=== PATIENT | female | born 1960 | race Caucasian/White ===

== ENCOUNTER 2016-12-24 22:40 | Inpatient (IN) | payer MEDICARE, OTHER ==
--- NOTE | ~2016-12-24 | HP ---
Unit #: [id number] #: [id number] Patient: JOEY ATKINS [id number] [address] [place], [place] [address] [id number] I MR#: [id number] NAME: JOEY ATKINS ROOM: [facility] Age: 56 Sex: F Admission Date: 12/25/2016 : 1960 Attending Physician: Ernestine Robert M.D. Primary Care Physician: Juan F Perry M.D. HISTORY AND PHYSICAL CHIEF COMPLAINT Left face pimple/redness. HISTORY OF PRESENT ILLNESS Ms. Atkins is a 56-year-old female who presented to the ER for above. The patient noticed a pimple present up above her left upper lip approximately 7-10 days ago. She put rubbing alcohol on the wound and attempted to pop it but states the rubbing alcohol burned. Several days later she noticed redness now extending up her left cheek up under to her left eye. She states the area felt warm and was draining, but she denies any subjective fever. When seen in the emergency department last evening, the patient's vital signs were all "present" upon presentation. She underwent a CT scan of her face, which revealed underlying abscess, and she was subsequently admitted after receiving clindamycin in the emergency department. PAST MEDICAL HISTORY 1. Severe anxiety, maintained on chronic benzodiazepine per [facility]. 2. Hypertension. 3. Urge incontinence. 4. COPD. 5. Chronic pain syndrome, maintained on narcotics. 6. Reports of hyperlipidemia. 7. Osteoarthritis. 8. Tobaccoism. 9. Questionable history of drug-seeking behavior per discharge summary in 2005. 10. Prior admission for hyponatremia and benzodiazepine withdrawal. PAST SURGICAL HISTORY 1. Left knee surgery x8 following failed left total knee arthroplasty. 2. Sharp incisional debridement of left lip and cheek earlier today. ALLERGIES Keflex (causes her throat to close). HOME MEDICATIONS 1. Omeprazole 20 mg daily. 2. Norvasc 10 mg daily. 3. Neurontin 800 mg q.i.d. 4. Vicodin 5/300 mg 1 t.i.d. 5. Cymbalta 90 mg daily. 6. Xanax 2 mg t.i.d. Unit #: [id number] #: [id number] Patient: JOEY ATKINS 7. Cozaar 50 mg daily. 8. Ditropan 15 mg daily. 9. Hydrochlorothiazide 12.5 mg p.o. daily. FAMILY HISTORY Family history is negative per patient. SOCIAL HISTORY The patient smoked a pack of cigarettes per day since age 14 for a 42 pack-year history of smoking. She denies any alcohol use. She denies any illicit drug use. REVIEW OF SYSTEMS The patient denies any fever, chest pain, shortness of breath, nausea, vomiting, diarrhea, melena, hematochezia, dysuria. She is complaining of pain and is reportedly anxious. PHYSICAL EXAMINATION VITAL SIGNS: Temperature 97.4, blood pressure 117/70, pulse rate 73, respiratory rate 16, oxygen saturation 98% on room air. GENERAL: The patient is awake. She is alert. She is oriented x3. Initially appears fine upon my initial entrance but then begins to cry that she is in pain. HEENT: Pupils are equally round and reactive to light bilaterally. Anicteric sclera. No conjunctival pallor. Oropharynx with moist mucous membranes. Edentulous. No erythema or exudate. NECK: Supple. No lymphadenopathy. No thyromegaly. No JVD. HEART: Regular rate and rhythm without murmur, rub or gallop. LUNGS: Diminished bilaterally without wheezes, rhonchi or crackles. ABDOMEN: Soft, nontender, nondistended. Positive bowel sounds. EXTREMITIES: No cyanosis, clubbing or edema. Pedal pulses 2/4. SKIN: There is erythema and swelling of the left cheek up to the left eye, but the incision site is currently dressed and was not viewed. The patient does have several scab lesions over the forearms, right greater than left, bilaterally from apparently picking. NEUROLOGIC: Cranial nerves II-XII intact. Sensation, strength and deep tendon reflexes are grossly normal. PSYCHIATRIC: Again, anxious. No suicidal or homicidal ideation. MUSCULOSKELETAL: No significant joint abnormalities noted. DIAGNOSTIC STUDIES LABORATORY: Lab work done in the ER reveals a white blood cell count of 12.3, hemoglobin 12.3, platelet count of 380,000. BMP reveals a sodium of 136, potassium 3.5, chloride 100, bicarb 28, BUN 7, creatinine 0.5, glucose 92. Wound culture done during surgery is currently growing gram-positive cocci in clusters. IMAGING: CT of maxillofacial area with contrast done in the emergency department reveals multilocular fluid collection within the subcutaneous fat of the left maxillary bone extending to the midline upper lip. This measures 3.4 cm x 1 cm x 8 mm. No evidence of osteomyelitis. Edentulous teeth noted. ASSESSMENT 1. Left facial abscess with associated cellulitis concerning for staph infection. 2. Hypertension. 3. Urge incontinence. Unit #: [id number] #: [id number] Patient: JOEY ATKINS 4. Chronic pain syndrome, maintained on opiates, with prior reports of drug-seeking behavior in the past. 5. Chronic anxiety, maintained on benzodiazepines. 6. Gastroesophageal reflux disease. 7. COPD. 8. Tobaccoism. PLAN 1. Will admit the patient to med/surg. 2. Patient was given clindamycin in the ER in regard to her abscess, but following surgery she has been placed on vancomycin and Zosyn, which seems appropriate. Will continue these broad-spectrum antibiotics and taper down when cultures return. I think there is high probability this is some sort of Staphylococcus aureus. Will have LSA continue to follow the wound. 3. Will continue home medications for chronic conditions and monitor. 4. SCDs for DVT prophylaxis. Dictated by Ernestine Robert M.D. BROOKE/whit TD: 12/25/2016 14:23 JOB #: [id number] HISTORY AND PHYSICAL X Ernestine Robert MD X HISTORY AND PHYSICAL
--- NOTE | ~2016-12-24 | CO ---
Unit #: [id number] #: [id number] Patient: JOEY WILKINS [id number] [address] [address] [id number] I MR#: [id number] NAME: JOEY WILKINS ROOM: [facility] Age: 56 Sex: F Admission Date: 12/25/2016 : 1960 Attending Physician: Ernestine Robert M.D. Primary Care Physician: Juan F Perry M.D. Consultation Date: 12/25/2016 CONSULTATION REPORT REASON FOR CONSULTATION Abscess, upper lip and left cheek. Thank you very much for asking us to see Ms. Wilkins. HISTORY OF PRESENT ILLNESS She is a 56-year-old white female, who 1-week ago developed pimple on her lip. It has progressed to be swollen, erythematous, and have an area of necrosis of the left side of the upper lip. She came to the emergency room for further evaluation. On CT scan, she was found to have a multiloculated abscess of the left superficial maxillary area extending into the left upper lip. There was no deep infection other than the subcutaneous tissues. She has had no trouble swallowing. She has no trouble talking or breathing. She has no trouble with vision of her eyes. She presents at this time for further evaluation and treatment. ALLERGIES Cephalexin. MEDICATIONS At home include Cymbalta, alprazolam, Cozaar, Microzide, Prilosec, Mobic, losartan, hydrochlorothiazide, gabapentin, hydrocodone. PAST SURGICAL HISTORY Remarkable for left knee surgery; left ankle surgery; right hand surgery; oral surgery, the patient is current edentulous. PAST MEDICAL HISTORY Chronic back pain, depression, overactive bladder, bilateral knee pain. SOCIAL HISTORY Positive for tobacco use. No alcohol use. REVIEW OF SYSTEMS Negative except for above. IMMUNIZATION STATUS Unknown. FAMILY HISTORY Noncontributory. PHYSICAL EXAMINATION Unit #: [id number] #: [id number] Patient: JOEY WILKINS GENERAL: Well-developed, well-nourished white female, in no apparent distress, but with obvious erythema and swelling of her left cheek and necrotic area of the left side of her upper lip. VITAL SIGNS: Afebrile. Vital signs stable. NECK: Supple. No thyromegaly or adenopathy. BACK: No CVA or spinous tenderness. ABDOMEN: Flat, soft, nontender. HEENT: Examination of her face reveals a necrotic area of the left side of the upper lip and erythema and induration of the left maxillary area. On palpation inside the mouth, it does not appear to be any involvement internally. She did not complaining of any throat pain. DIAGNOSTIC STUDIES LABORATORY RESULTS: Reveal a normal CMP and a white count of 12.3 with hemoglobin of 12.3 and hematocrit 36.3. IMPRESSION A 56-year-old white female with a left cheek and left-sided upper lip abscess. We have recommended incision and drainage and debridement. All the risks and benefits were fully explained to the patient in detail including the risks of bleeding, infection, neurovascular injury, additional surgery, transfer , and other risks. She understands and requests to proceed. Dictated by... Alfie Leon/julieta TD: 12/25/2016 07:07 JOB #: [id number] CC: [facility] CONSULTATION REPORT X Shane Silva MD X CONSULTATION REPORT
--- NOTE | ~2016-12-24 | OR ---
Unit #: [id number] #: [id number] Patient: JOEY WILKINS [id number] [address] [address] [id number] I MR#: [id number] NAME: JOEY WILKINS [place] [facility] [place] [facility] [place] Date of Procedure: 12/25/2016 Admission Date: 12/25/2016 Surgeon: Shane Silva M.D. : 1960 Attending Physician: Ernestine Robert M.D. Primary Care Physician: Juan F Perry M.D. OPERATIVE REPORT PREOPERATIVE DIAGNOSIS Necrotic abscess, upper lip and left cheek. POSTOPERATIVE DIAGNOSIS Necrotic abscess, upper lip and left cheek. PROCEDURE PERFORMED Incision and drainage of necrotic abscess, left side of upper lip and left cheek with sharp excisional debridement of skin and subcutaneous tissue. ANESTHESIA General endotracheal anesthesia with 0.5% Marcaine plain local anesthesia. FINDINGS The patient had some necrotic skin and subcutaneous tissue sharply debrided. The abscess was opened and all loculations were broken up. SPECIMENS Sent to microbiology. COMPLICATIONS None apparent. CONDITION The patient tolerated the procedure well. INDICATIONS FOR PROCEDURE The patient is a 56-year-old white female, who developed a pimple on her lip approximately week ago. It progressed to necrotic wound and an area of induration and erythema of left maxillary area. On CT scan, the patient had a 3 to 4 cm abscess present. She presents at this time for incision and drainage. DESCRIPTION OF PROCEDURE After obtaining informed consent as well as receiving scheduled antibiotics, the patient was brought to the operating room and after adequate general endotracheal anesthesia was obtained, had her left face prepped and draped in a sterile fashion. A mosquito was placed through the necrotic wound on her lip and it tracked into a large abscess cavity over the left maxillary area. There was quite a bit of purulent material that was evacuated. An incision was made with a scalpel and the abscess Unit #: [id number] #: [id number] Patient: JOEY WILKINS was unroofed. All loculations were broken up. The Metzenbaum scissors and tenotomy scissors were used to sharply debride skin and subcutaneous tissue on either side that was necrotic. Cultures were sent. The wound was irrigated and hemostasis obtained with the Bovie, infiltrated with 0.5% Marcaine plain local anesthesia and was packed with a saline soaked fluff. A dry dressing was applied. Needle counts, sponge counts, and instrument counts were all correct as reported by the scrub nurse x2. The patient went from the operating room to the recovery room in stable condition. Dictated by... Alfie Leon/julieta TD: 12/25/2016 21:28 JOB #: [id number] CC: [facility] OPERATIVE REPORT X Shane Silva MD X PROCEDURE OPERATIVE NOTE
--- NOTE | ~2016-12-24 | CT99 ---
[facility] A Service of [facility] & [facility] RADIOLOGY TEXT RESULTS PATIENT: JOEY WILKINS LOCATION: A 217-01 : [birth year] UNIT #: [id number] AGE: [address]: Ernestine Robert MD SEX: F ORDER DR: [id number] [facility] [address] [facility]. [place], [place] [address] [id number] I MR#: [id number] Acc #: [id number] NAME: JOEY WILKINS : 1960 SEX: F STUDY DATE/TIME: 12/25/2016 0:48 UNIT: C3A PCU ROOM: 312 STUDY DESCRIPTION: CT Maxillofacial Area W Cont Attending Physician: Ernestine Robert M.D. Ordering Physician: Karel Mckeon Aprn Primary Care Physician: Juan F Perry M.D. MEDICAL IMAGING REPORT This report is preliminary unless electronic signature is present EXAM CT maxillofacial without IV contrast. COMPARISON CT head dated November 08, 2015. INDICATION 56-year-old female with an oral infection for 1 month. Left cheek and upper lip pain and redness. TECHNIQUE Axial CT imaging of the maxillofacial bones was performed after administration of 100 mL of Isovue-370. Coronal reformats were constructed. This CT exam was performed with one or more of the following radiation dose reduction techniques: automatic exposure control, adjustment of mA and/or kV according to patient size, and iterative reconstruction. FINDINGS Chronic appearing mild mucosal disease of the maxillary sinuses. Mastoid air cells, middle ears, and visualized paranasal sinuses are well-aerated. Patient is edentulous. No acute fractures or suspicious osseous lesions. No evidence of osteomyelitis. Two small hypoattenuating areas with a third hypoattenuating area on the left palatine tonsil, measuring up to 3 mm, 6 mm, and 4 mm. These are nonspecific. Tonsillar abscess is not entirely excluded. Visualized airway is widely patent. There are calcifications of the cavernous internal carotid arteries bilaterally. There are also calcifications at the level of the bilateral carotid bulbs. No significant arterial stenosis is seen within the neck. No bulky adenopathy. There is a multilocular fluid collection seen within the subcutaneous fat overlying the left maxillary bone extending inferiorly to the midline upper lip. This may communicate with the skin at the level of STS. [facility] A Service of [facility] RADIOLOGY TEXT RESULTS PATIENT: JOEY WILKINS LOCATION: [place] [address] : [birth year] UNIT #: [id number] AGE: [address]: Ernestine Robert MD SEX: F ORDER DR: the midline upper lip. In conglomerate, the fluid collection measures approximately 3.4 cm transverse by as much as 8 mm AP, and as much as a 1 cm craniocaudal. There is adjacent fat stranding. Overlying skin is mildly thickened. IMPRESSION 1. Rim-enhancing multilocular fluid collection within the subcutaneous fat overlying the left maxillary bone extending inferiorly into the midline upper lip. There may be communication with the skin at the upper lip and the finding is concerning for a multilocular abscess. This measures approximately 3.4 cm transverse x 1 cm craniocaudal x up to 8 mm AP. There is adjacent cellulitis and skin thickening. There is no evidence of osteomyelitis. The patient is edentulous. 2. 3 low-density lesions within the left palatine tonsil measuring 3 mm, 6 mm, and 4 mm. These are nonspecific and are likely insignificant in the absence of clinical symptoms but tonsillar abscess could give similar appearance. 3. Mild chronic maxillary paranasal sinus disease. 4. Calcifications of the cavernous internal carotid arteries and carotid bulbs. No evidence of significant associated stenosis. Dictated by... Kan Carney M.D. THIS IS AN ELECTRONICALLY VERIFIED REPORT Kan Carney M.D. at 12/28/2016 6:24 PM RERE/hipolito TD: 12/25/2016 09:24 JOB #: [id number] MEDICAL IMAGING REPORT COPY
--- NOTE | ~2016-12-24 | CT99 ---
[facility] A Service of [facility] & [facility] RADIOLOGY TEXT RESULTS PATIENT: JOEY WILKINS LOCATION: C2A 217- : [birth year] UNIT #: [id number] AGE: [address]: Ernestine Robert MD SEX: F ORDER DR: [id number] [facility] [address] [facility]. [place], [place] [address] [id number] I MR#: [id number] Acc #: [id number] NAME: JOEY WILKINS : 1960 SEX: F STUDY DATE/TIME: 12/27/2016 12:19 UNIT: C2A ROOM: 217 STUDY DESCRIPTION: CT Maxillofacial Area W Cont Attending Physician: Ernestine Robert M.D. Ordering Physician: Shan Tirado M.D. Primary Care Physician: Juan F Perry M.D. MEDICAL IMAGING REPORT This report is preliminary unless electronic signature is present EXAM Maxillofacial CT. DATE OF EXAM 12/27/2016 HISTORY Left-sided facial pain and swelling for the past 3 days. Facial cellulitis. Recent drainage of an abscess in the upper lip. TECHNIQUE Axial images were obtained with contrast. 100 mL of Isovue was used. NOTE: This CT exam was performed with one or more of the following radiation dose reduction techniques: automatic exposure control, adjustment of mA and/or kV according to patient size, and iterative reconstruction. FINDINGS The fluid collection in the upper lip has been drained since the previous examination. There is soft tissue swelling seen generally over the left side of the face consistent with cellulitis, but there is no evidence of any additional abscess formation. No new fluid collections are seen since the previous scan. No evidence of progressive adenopathy. Retroorbital structures are unremarkable. The superior ophthalmic veins are noted to be abnormally large bilaterally, but this is symmetric and there is no evidence of a chronic cavernous fistula on either side. This could reflect a chronically elevated venous pressures intracranially. IMPRESSION Interval drainage of the abscess in the upper lip. Left-sided facial swelling without evidence of any additional abscess or fluid collection. No new destructive bone lesions since the previous scan. Also noted is enlargement of the superior ophthalmic veins bilaterally, without a STS. [facility] A Service of [facility] & [facility] RADIOLOGY TEXT RESULTS PATIENT: JOEY WILKINS LOCATION: C2A 217-01 : [birth year] UNIT #: [id number] AGE: [address]: Ernestine Robert MD SEX: F ORDER DR: definite etiology. There is no evidence of chronic cavernous fistula on either side. The symmetry suggests perhaps chronically elevated intracranial venous pressures. Dictated by... Adrián Aguila M.D. THIS IS AN ELECTRONICALLY VERIFIED REPORT Adrián Aguila M.D. at 12/28/2016 8:39 AM TIEN/ollie TD: 12/27/2016 19:21 JOB #: [id number] MEDICAL IMAGING REPORT COPY
--- NOTE | ~2016-12-24 | DS ---
Unit #: [id number] #: [id number] Patient: JOEY WILKINS [id number] [address] [place], [place] [address] [id number] I MR#: [id number] NAME: JOEY WILKINS ROOM: 217 Age: 56 Sex: F Admission Date: 12/25/2016 : 1960 Discharge Date: 12/27/2016 Attending Physician: Ernestine Robert M.D. Primary Care Physician: Juan F Peryr M.D. DISCHARGE SUMMARY PRINCIPAL DIAGNOSES 1. Left facial abscess with associated cellulitis secondary to MRSA. 2. History of hypertension with mild hypotension. Now on decreased medication. 3. Hypokalemia. 4. Chronic pain syndrome, maintained on narcotics. 5. Severe anxiety. 6. Sedation secondary to medication. 7. Left elbow bursitis without evidence of infection. 8. Urge incontinence. 9. Chronic obstructive pulmonary disease. 10. Tobaccoism. 11. Osteoarthritis. 12. Gastroesophageal reflux disease. CONSULTANTS Dr. Silva, general surgery. PROCEDURES PERFORMED Incision and drainage of necrotic abscess of the left upper lip and left cheek with sharp excisional debridement of skin and subcutaneous tissue. This occurred without complication. DIAGNOSTIC DATA IMAGING: CT of the maxillofacial area with contrast on 12/25/2016 with a rim-enhancing multilocular fluid collection within the subcutaneous fat overlying the left maxillary bone and extending into the midline left upper lip. This measures 3.4 x 1 cm x 8 mm. Low density of the left palatine tonsil measuring 3 mm, 6 mm and 4 mm. Chronic paranasal sinus disease. CT scan of the maxillofacial area with contrast on 12/27/2016 without any evidence of abscess. This appeared to be drained. CLINICAL HISTORY/HOSPITAL COURSE Ms. Wilkins is a 56-year-old female who presented to the emergency department with swelling and redness of the lip. Please refer to history and physical for further detail. The patient was found to have left facial abscess and was subsequently admitted. LSA was consulted and the patient underwent incision and drainage and debridement of the region. Postoperatively she has done rather well. Her erythema has improved significantly. She denies any fever and leukocytosis has resolved. Cultures have ultimately frown MRSA sensitive Unit #: [id number] #: [id number] Patient: JOEY WILKINS to Bactrim therapy and I am going to change her to oral antibiotics. The patient today is insistent there is underlying abscess and thus CT scan was done and does not reveal any recurrent and/or new abscess. I have discussed this case with Dr. Tirado of general surgery and he agrees discharge is appropriate. I have tried to obtain home health, but unfortunately the patient is unclear on her address and thus she has been taught dressing changes to do herself. Please note, the patient has remained sedated significantly through her hospitalization and does demonstrate some drug-seeking behavior. I did decrease her Xanax. I suggested to her she decrease the dose as an outpatient, but I anticipate she will not do so. Can further adjust medications as an outpatient. The patient is also complaining of swelling of her left elbow, but this appears to be uncomplicated bursitis and there is no erythema or warmth to the lesion. At this point, drainage would not be in her best interest given her significant infection of her face and likely recurrence of her bursitis. DISCHARGE CONDITION Stable. DISPOSITION Discharge to home. DISCHARGE MEDICATIONS 1. Bactrim DS 1 b.i.d. for another 9 days. 2. Dakin's 1/8 strength solution applied to wound b.i.d. with 1 refill. 3. Neurontin 800 mg q.i.d. 4. Cymbalta 90 mg daily. 5. Xanax 2 mg p.o. t.i.d. 6. Norvasc 10 mg half tablet daily. 7. Ditropan 15 mg daily. 8. Cozaar 50 mg daily. 9. Vicodin 5/300 mg 1 tablet t.i.d. 10. Omeprazole 20 mg daily. DISCHARGE INSTRUCTIONS 1. The patient is instructed to pack the wound b.i.d. 2. She has been instructed on several occasions not to touch the wound. FOLLOWUP 1. The patient will follow up with Dr. Silva in seven days. 2. She can follow up with Dr. Perry in one week. Dictated by... Ernestine Robert M.D. Jaspal TD: 12/29/2016 08:48 JOB #: [id number] Unit #: [id number] #: [id number] Patient: JOEY WILKINS DISCHARGE SUMMARY X Ernestine Robert MD X DISCHARGE SUMMARY
[~2016-12-24 22:40] MED LIST: ABX; ALBUTEROL MININEB NEB; ALPRAZOLAM; ALPRAZOLAM PO; ALPRAZOLAM0.5 MG PO; ALPRAZOLAM1 MG PO; AMITRYPTYLINE PO; AMOXICILLIN500 M1 PO; AZOR 10-40 MG1 UDTAB PO; AZOR 10/20 MG T1 TAB PO; AZOR 10/40 MG T1 TAB; AZOR 10/40 MG T1 TAB PO; AZOR PO; BACLOFEN10 MG PO; BUMEX2 MG PO; CALCIUM 500 + D1 TAB PO; CHLORHEXIDINE; CLEOCIN HCL300 M1 PO; COZAAR25 MG PO; CYCLOBENZAPRINE5 MG PO; CYMBALTA PO; CYMBALTA20 MG PO; CYMBALTA30 MG; DIAZEPAM PO; DITROPAN; DITROPAN PO; DITROPAN XL PO; DITROPAN5 MG PO; FELDENE20 MG PO; FERROUS SULFATE PO; FIRST-OMEPR2 MG/1 ML; FLEXERIL PO; FLUOXETINE HCL20 M1 PO; FLUTICASONE PRO15 GM; FOLIC ACID PO; GABAPENTIN400 MG PO; HCTZ PO; HRT PO; HYDROCODON-ACE1 EAC5 PO; HYDROCODON-ACE1 EAC7 PO; IBUPROFEN IB200 M1 PO; IBUPROFEN100 M1; IBUPROFEN800 MG PO; KEFLEX500 M1 PO; KLONOPIN PO; LASIX; LASIX PO; LASIX20 MG PO; LEVOFLOXACIN750 MG PO; LIDODERM30 EA TOP; LOPRESSOR PO; LORTAB 10/500 T1 TAB PO; LORTAB 5-325 M1 EACH PO; MEDROL DOSE PAK PO; MEDROL PO; MICROZIDE12.5 M1 PO; MOBIC; MULTIVITAM PO; NABUMETONE PO; NAPROSYN500 MG PO; NAPROXEN PO; NAPROXEN375 MG PO; NEURONTIN PO; NEURONTIN800 MG; NEURONTIN800 MG DOB; NEURONTIN800 MG PO; NORFLEX100 M1 PO; NORVASC PO; NYSTATIN5 ML PO; OXYBUTYNIN10 MG/BOTT PO; PERCOCET 10/3251 TAB PO; PERCOCET 5-3251 TAB PO; PERCOCET 7.5-31 EACH PO; PERCOCET5/325 PO; PRILOSEC; PRILOSEC20 M1 PO; PROAIR HFA8.5 GM IH; PROVENTIL17 GM IH; PROZAC PO; RELAFEN500 MG PO; ROBAXIN PO; ROBAXIN500 MG PO; SEROQUEL PO; SEROQUEL XR150 MG; SEROQUEL XR300 M1 PO; SEROQUEL XR300 MG PO; SODIUM CHLORIDE1 GM PO; TORADOL10 MG PO; TRAMADOL HCL50 M1; TRAMADOL HCL50 M1 PO; VITAMIN D50000 UNIT PO; VOLTAREN100 GM TP; VOLTAREN75 MG PO; XANAX XR1 MG PO; XANAX0.5 M1 PO; XANAX1 MG; XANAX1 MG PO; XANAX2 MG PO; ZANAFLEX6 MG PO; ZOFRAN PO; ZOLOFT PO
[2016-12-24 23:41] LABS: BASOPHIL# 0.1 X10e3 (0-0.3); BASOPHIL% 0.6 % (0-2.5); EOSINOPHIL# 0.3 X10e3 (0-0.7); EOSINOPHIL% 2.3 % (0.0-7.0); HEMATOCRIT 36.3 % (35.0-45.0); HEMOGLOBIN 12.3 gm/dL (12.0-16.0); LYMPHOCYTE# 2.4 X10e3 (1.0-3.5); LYMPHOCYTE% 19.8 % (17.0-45.0); MEAN CELL VOLUME 92.1 FL (83-96); MEAN CORPUSCULAR HEMOGLOBIN 31.2 PG (28-34); MEAN CORPUSCULAR HGB CONC 33.9 g/dL (30-36); MEAN PLATELET VOLUME 8.7 FL (6.5-11.5); MONOCYTE# 0.9 X10e3 (0-1.0); MONOCYTE% 7.1 % (3.0-12.0); NEUTROPHIL# 8.6 X10e3 (1.5-7.1); NEUTROPHIL% 70.2 % (40-75); PLATELET COUNT 380 X10e3 (140-420); RED BLOOD COUNT 3.94 X10e (3.90-5.30); RED CELL DISTRIBUTION WIDTH 12.5 % (11.0-15.5); WHITE BLOOD COUNT 12.3 X10e3 (4.0-10.5)
[2016-12-24 23:42] LABS: DIFF IND NO
[2016-12-25 00:05] LABS: BLOOD UREA NITROGEN 7 mg/dL (9-23); CALCIUM SERUM 8.8 mg/dL (8.4-10.2); CARBON DIOXIDE 28 mmol/L (22-31); CHLORIDE 100 mmol/L (100-111); CREATININE SERUM 0.5 mg/dL (0.6-1.4); GLOM FILT RATE Estimated ABOVE60 mL/min (>60); GLUCOSE FASTING 92 mg/dL (70-110); POTASSIUM 3.5 mmol/L (3.5-5.1); SODIUM 136 mmol/L (135-145)
[2016-12-25] MEDS ORDERED: XANAX2 MG PO (00:51)
[2016-12-25] MEDS ORDERED: CYMBALTA PO (00:51)
[2016-12-25] MEDS ORDERED: COZAAR PO (00:52)
[2016-12-25] MEDS ORDERED: DITROPAN PO (00:52)
[2016-12-25] MEDS ORDERED: AMLODIPINE BESY10 MG PO (00:53)
[2016-12-25] MEDS ORDERED: HYDROCHLOROTH12.5 MG PO (00:53)
[2016-12-25] MEDS ORDERED: OMEPRAZOLE20 M2 PO (00:53)
[2016-12-25] MEDS ORDERED: NEURONTIN800 MG PO (00:54)
[2016-12-25] MEDS ORDERED: VICODIN 5-3001 EACH PO (00:54)
[2016-12-25 20:28] LABS: AMPHETAMINE NEG (NEG); BARBITURATES NEG (NEG); BENZODIAZEPINES POS (NEG); COCAINE NEG (NEG); MARIJUANA NEG (NEG); OPIATES POS (NEG); TRICYCLIC ANTIDEPRESSANTS NEG (NEG); U METHADONE NEG (NEG)
[2016-12-26 05:43] LABS: HEMATOCRIT 38.1 % (35.0-45.0); HEMOGLOBIN 12.8 gm/dL (12.0-16.0); MEAN CELL VOLUME 92.8 FL (83-96); MEAN CORPUSCULAR HEMOGLOBIN 31.1 PG (28-34); MEAN CORPUSCULAR HGB CONC 33.5 g/dL (30-36); MEAN PLATELET VOLUME 8.4 FL (6.5-11.5); RED BLOOD COUNT 4.11 X10e (3.90-5.30); RED CELL DISTRIBUTION WIDTH 12.6 % (11.0-15.5); WHITE BLOOD COUNT 9.1 X10e3 (4.0-10.5)
[2016-12-26 06:32] LABS: BLOOD UREA NITROGEN 6 mg/dL (9-23); CALCIUM SERUM 9.4 mg/dL (8.4-10.2); CARBON DIOXIDE 31 mmol/L (22-31); CHLORIDE 98 mmol/L (100-111); CREATININE SERUM 0.6 mg/dL (0.6-1.4); GLOM FILT RATE Estimated ABOVE60 mL/min (>60); GLUCOSE FASTING 114 mg/dL (70-110); POTASSIUM 3.4 mmol/L (3.5-5.1); SODIUM 141 mmol/L (135-145)
[2016-12-27 09:08] LABS: BLOOD UREA NITROGEN 9 mg/dL (9-23); BUN/CREATININE RATIO 12.85; CALCIUM SERUM 9.2 mg/dL (8.4-10.2); CARBON DIOXIDE 34 mmol/L (22-31); CHLORIDE 96 mmol/L (100-111); CREATININE SERUM 0.7 mg/dL (0.6-1.4); GLOM FILT RATE Estimated ABOVE60 mL/min (>60); GLUCOSE FASTING 95 mg/dL (70-110); MAGNESIUM 1.9 mg/dL (1.6-3.0); POTASSIUM 4.6 mmol/L (3.5-5.1); SODIUM 136 mmol/L (135-145)
[2016-12-27] MEDS ORDERED: DAKIN'S473 M1 MC (17:11)
[2016-12-27] MEDS ORDERED: BACTRIM DS TABL1 TA1 PO (17:12)
== END 2016-12-27 19:40 | disposition home or self-care (01) | DRG 133 ==
LOC: CED 22:40 → CEDOF 12-25 02:25 → C3A PCU 12-25 05:35 → C2A 12-25 15:24
PROVIDERS: Internal Medicine; Nurse Practitioner Family; Surgery
PROC: 0JB10ZZ Excision of Face Subcutaneous Tissue and Fascia, Open Approach (ICD-10-PCS; principal; 2016-12-25 13:00)
DX: K13.0 Diseases of lips (principal); L02.01 Cutaneous abscess of face; I10 Essential (primary) hypertension; F41.9 Anxiety disorder, unspecified; N39.41 Urge incontinence; G89.4 Chronic pain syndrome; M19.90 Unspecified osteoarthritis, unspecified site; Z88.1 Allergy status to other antibiotic agents; F17.210 Nicotine dependence, cigarettes, uncomplicated
CPT/HCPCS: 36415; 70487; 80048; 80202; 80307; 83735; 85025; 85027; 87040; 87070; 87075; 87077; 87186; 87205; 96365; 96375; 99285; J2250; J2270; J2543; J3010; J3370; Q9967

== ENCOUNTER 2017-01-07 21:10 | Emergency (ER) | payer MEDICARE, OTHER ==
--- NOTE | ~2017-01-07 | CR169 ---
[facility] A Service of [facility] RADIOLOGY TEXT RESULTS PATIENT: JOEY WILKINS LOCATION: CFTX : 62 UNIT #: [id number] AGE: [address]: Vy Ibrahim MD SEX: F ORDER DR: [id number] [facility] [address] [facility] [place], [place] [address] [id number] MR#: [id number] Acc #: [id number] NAME: JOEY WILKINS : 1960 SEX: F STUDY DATE/TIME: 01/07/2017 20:42 UNIT: [facility] ROOM: STUDY DESCRIPTION: CR Knee 2 Views Lt Attending Physician: Vy Ibrahim M.D. Referring Physician: Self Referral-Refer Use Only Ordering Physician: Vy Ibrahim M.D. Primary Care Physician: Juan F Perry M.D. MEDICAL IMAGING REPORT This report is preliminary unless electronic signature is present EXAM Left knee 2 views, 01/07/2017 HISTORY Left knee pain status post fall yesterday with bruising to left knee and swelling. FINDINGS 2 views of the left knee demonstrate total knee prosthesis which appears well seated. Surgical plate and screws is seen along the lateral aspect of the distal femur. No acute fracture is seen. There is no joint effusion. IMPRESSION Total knee prosthesis. No acute abnormality. Dictated by... Damien Kapoor M.D. THIS IS AN ELECTRONICALLY VERIFIED REPORT Damien Kapoor M.D. at 01/08/2017 10:50 AM ANSELMO/marcelo TD: 01/08/2017 04:02 JOB #: [id number] MEDICAL IMAGING REPORT COPY
--- NOTE | ~2017-01-07 | CR21 ---
[facility] A Service of [facility] & [facility] RADIOLOGY TEXT RESULTS PATIENT: JOEY WILKINS LOCATION: [facility]FT[facility] : 62 UNIT #: [id number] AGE: [address]: Vy Ibrahim MD SEX: F ORDER DR: [id number] [facility] [address] [facility]. [place], [place] [address] [id number] E MR#: [id number] Acc #: [id number] NAME: JOEY WILKINS : 1960 SEX: F STUDY DATE/TIME: 01/07/2017 20:46 UNIT: [facility] ROOM: STUDY DESCRIPTION: CR Ankle Min 3 Views Rt Attending Physician: Vy Ibrahim M.D. Referring Physician: Self Referral-Refer Use Only Ordering Physician: Vy Ibrahim M.D. Primary Care Physician: Juan F Perry M.D. MEDICAL IMAGING REPORT This report is preliminary unless electronic signature is present EXAM Right ankle series, 01/07/2017 INDICATION Right ankle pain after a fall yesterday. PROCEDURE 3 views of the right ankle. COMPARISON 10/29/2016 FINDINGS Ankle mortise intact. No acute fracture and no dislocation. IMPRESSION No acute findings. Dictated by... Gil German M.D. THIS IS AN ELECTRONICALLY VERIFIED REPORT Gil German M.D. at 01/09/2017 7:00 AM JAVIER/marcelo TD: 01/08/2017 04:13 JOB #: [id number] MEDICAL IMAGING REPORT COPY
--- NOTE | ~2017-01-07 | CR170 ---
[facility] A Service [facility] RADIOLOGY TEXT RESULTS PATIENT: JOEY WILKINS LOCATION: [facility] : 62 UNIT #: [id number] AGE: [address]: Vy Ibrahim MD SEX: F ORDER DR: [id number] [address] [address] [id number] E MR#: [id number] Acc #: [id number] NAME: JOEY WILKINS : 1960 SEX: F STUDY DATE/TIME: 01/07/2017 20:44 UNIT: CFTN ROOM: STUDY DESCRIPTION: CR Knee 2 Views Rt Attending Physician: Vy Ibrahim M.D. Referring Physician: Self Referral-Refer Use Only Ordering Physician: Vy Ibrahim M.D. Primary Care Physician: Juan F Perry M.D. MEDICAL IMAGING REPORT This report is preliminary unless electronic signature is present EXAM Right knee series, 01/07/2017 INDICATION Right knee pain after a fall yesterday. PROCEDURE 2 views of the right knee. COMPARISON None. FINDINGS No acute fracture. No dislocation. There is significant tricompartmental arthrosis. Moderate sized joint effusion. IMPRESSION Tricompartmental arthrosis with a moderate sized joint effusion. No evidence for fracture or dislocation. Dictated by... Gil German M.D. THIS IS AN ELECTRONICALLY VERIFIED REPORT Gil German M.D. at 01/09/2017 7:00 AM EED/marcelo TD: 01/08/2017 04:00 JOB #: [id number] [facility] A Service [facility] RADIOLOGY TEXT RESULTS PATIENT: JOEY WILKINS LOCATION: [place] : 62 UNIT #: [id number] AGE: [address]: Vy Ibrahim MD SEX: F ORDER DR: MEDICAL IMAGING REPORT COPY
[~2017-01-07 21:10] MED LIST changes: +AMLODIPINE BESY10 MG PO; +BACTRIM DS TABL1 TA1 PO; +COZAAR PO; +DAKIN'S473 M1 MC; +HYDROCHLOROTH12.5 MG PO; +OMEPRAZOLE20 M2 PO; +VICODIN 5-3001 EACH PO
== END 2017-01-07 21:45 | disposition home or self-care (01) ==
LOC: CFTX 21:10
DX: S93.401A Sprain of unspecified ligament of right ankle, initial encounter (principal); S80.02XA Contusion of left knee, initial encounter; S80.01XA Contusion of right knee, initial encounter; F17.200 Nicotine dependence, unspecified, uncomplicated; Z88.1 Allergy status to other antibiotic agents; Z79.899 Other long term (current) drug therapy; W18.30XA Fall on same level, unspecified, initial encounter; Y92.009 Unspecified place in unspecified non-institutional (private) residence as the place of occurrence of the external cause
CPT/HCPCS: 29530; 29540; 73560; 73610; 99284

== ENCOUNTER 2017-01-12 22:32 | Emergency (ER) | payer MEDICARE, OTHER | END 2017-01-12 23:55 | disposition home or self-care (01) | LOC: CED 22:32 | DX: R51 Headache (principal); F41.1 Generalized anxiety disorder; J44.9 Chronic obstructive pulmonary disease, unspecified; I10 Essential (primary) hypertension; F17.210 Nicotine dependence, cigarettes, uncomplicated; Z88.1 Allergy status to other antibiotic agents | CPT/HCPCS: 96372; 99283; J1885 ==

== ENCOUNTER 2017-02-05 15:38 | Emergency (ER) | payer MEDICARE, OTHER | END 2017-02-05 15:59 | disposition home or self-care (01) | LOC: CFTX 15:38 | DX: S89.92XA Unspecified injury of left lower leg, initial encounter (principal); W19.XXXA Unspecified fall, initial encounter; I10 Essential (primary) hypertension; I25.2 Old myocardial infarction; F32.9 Major depressive disorder, single episode, unspecified; F41.9 Anxiety disorder, unspecified; Y92.009 Unspecified place in unspecified non-institutional (private) residence as the place of occurrence of the external cause | CPT/HCPCS: 99283 ==

== ENCOUNTER 2017-06-04 19:45 | Inpatient (IN) | payer MEDICARE, OTHER ==
[~2017-06-04] VITALS: Ht 167.6 cm; Wt 73.4 kg
--- NOTE | ~2017-06-04 | EKG ---
PATIENT: JOEY WILKINS UNIT #: [id number] Ventricular Rate: 79 BPM Atrial Rate: 79 BPM P-R Interval: 170 ms QRS Duration: 100 ms Q-T Interval: 388 ms QTC Calculation(Bezet): 444 ms P De [place]: 43 degrees Calculated R [place]: -61 degrees Calculated T De [place]: 22 degrees Diagnosis Line: Normal sinus rhythm Diagnosis Line: Left axis deviation Diagnosis Line: Incomplete right bundle branch block Diagnosis Line: Inferior infarct (cited on or before 01-FEB-2014) Diagnosis Line: Anteroseptal infarct , age undetermined Diagnosis Line: Abnormal ECG Diagnosis Line: When compared with ECG of 08-NOV-2015 13:36, Diagnosis Line: Incomplete right bundle branch block is now Diagnosis Line: Present Diagnosis Line: Anteroseptal infarct is now Present Diagnosis Line: Confirmed by YENNY MESA MD ([id number]) on 06/05/2017 Diagnosis Line: 11:50:02 PM INTERPRETING MD: MOSHE EMERY
--- NOTE | ~2017-06-04 | HP ---
Unit #: [id number] #: [id number] Patient: JOEY WILKINS [id number] [address] [place], [place] [address] [id number] I MR#: [id number] NAME: JOEY WILKINS ROOM: 301 Age: 57 Sex: F Admission Date: 06/04/2017 : 1960 Attending Physician: Angie Pal M.D. Primary Care Physician: Juan F Perry M.D. HISTORY AND PHYSICAL ADDENDUM The patient is a little more awake this morning and denies suicide attempt. Again, I was told that she took a polypharmacy overdose of Xanax, Lortab and Neurontin. I thought this history was given to us by her significant other. However, it is the nurses who noted discrepancy in her pill bottles. I do believe the patient did take a polypharmacy overdose but I am unsure if all of those three medicines were involved. Obviously, when more awake and alert today, will be able to discuss with the patient further. I will continue a 72 hour hold at this point in time and ask [facility] to see in consultation. Dictated by Angie Pal M.D. AML/df TD: 06/05/2017 06:05 JOB #: [id number] HISTORY AND PHYSICAL Page 1 of 1 X Angie Pal MD X HISTORY AND PHYSICAL
--- NOTE | ~2017-06-04 | CO ---
Unit #: [id number] #: [id number] Patient: SHARA WILKINS [id number] [address] [place], [place] [address] [id number] I MR#: [id number] NAME: SHARA WILKINS ROOM: 301 Age: 57 Sex: F Admission Date: 06/04/2017 : 1960 Attending Physician: Robb Gilman M.D. Primary Care Physician: Juan F Perry M.D. Consultation Date: 06/05/2017 CONSULTATION REPORT REASON FOR CONSULTATION Polysubstance overdose, currently on 72-hour hold. HISTORY OF PRESENT ILLNESS Ms. Shara Wilkins is a 57-year-old white female, seen in room 301, bed 1, on 06/05/2017 at [facility]. The patient was admitted after polysubstance overdose. The patient dressed casually, seemed somewhat anxious, nervous, reported that she wants to go home. The patient is on 72-hour hold. Has a sitter. The patient reported that she was drinking a lot and took some pills. The patient took an unknown amount of Lortab, Xanax, Neurontin. Time of ingestion was unknown. The patient on admission was lethargic and arousable. The patient's urine drug tox screen was positive for benzos, opiates, acetaminophen, alcohol. The patient reports that she receives treatment from Dr. Guanako Frias and currently taking Xanax and pain medication. The patient seemed somewhat anxious, nervous, guarded, labile. The patient reports that she is not having any suicidal ideation now and wants to go home. The patient denied any hallucination at this time. Collateral information unavailable at this time. PAST PSYCHIATRIC HISTORY Remarkable for history of depression, anxiety, and outpatient followup with Dr. Guanako Frias. MEDICAL HISTORY AND MEDICATION HISTORY Remarkable for history of essential hypertension; history of incontinence; COPD; chronic pain, on [place]; MRSA; facial abscess requiring I and D in 11/2016; hyperlipidemia; DJD; left knee surgery x8. ALLERGIES Keflex. HOME MEDICATIONS The patient is on [place], Xanax 2 mg three times a day, trazodone, Prilosec, ibuprofen, estradiol, Cymbalta, Seroquel last fill 04/28/2017, and Diaidaopan. FAMILY HISTORY AND SOCIAL HISTORY The patient reports that she lives with boyfriend. Has a poor support. History of alcohol use. The patient denied any use of any illicit drugs, but reported some relationship problem. REVIEW OF SYSTEMS Complete review of systems is unremarkable except as mentioned above. The Unit #: [id number] #: [id number] Patient: SHARA WILKINS patient's vital signs; temperature 99.3, pulse 85, respirations 18, blood pressure 107/56, oxygen saturation 96%. MENTAL STATUS EXAMINATION General appearance; the patient dressed in hospital attire, seemed somewhat anxious, nervous. Mood was labile. Attention span and concentration were poor. Speech, rapid in rate and rambling. Oriented in place and person. Mood and affect, labile. Thought process, circumstantial. Thought content, the patient denied any thoughts of harming self or others, but was admitted after taking overdose polypharmacy. Recent and remote memory, fair to slightly impaired. Language, fair. Fund of knowledge, fair. Insight and judgment, fair to slightly impaired. DIAGNOSES Major depressive disorder, recurrent, severe, F33.2; anxiety disorder, not otherwise specified, F40.01; alcohol use disorder, severe, F10.20; opiate use disorder, severe, F11.20. Secondary diagnosis: Deferred. Medical diagnosis: Please refer to H and P. Stressors: Psychosocial stressors. ASSESSMENT AND PLAN 1. Supportive psychotherapy and psychoeducation provided to the patient. 2. Educated about benefits and side effects of medication and course and prognosis of illness. 3. Advised to continue with current treatment, sitter, 72-hour hold and once the patient is medically stable, transfer the patient to [facility] for inpatient psychiatric treatment. Please feel free to call if any questions, telephone #[phone]. Dictated by... Alfie Pierce/julieta TD: 06/06/2017 18:49 JOB #: [id number] CONSULTATION REPORT Page 1 of 1 X Kumar Gomez MD X CONSULTATION REPORT
--- NOTE | ~2017-06-04 | CR72 ---
[facility] A Service of [facility] & [facility] RADIOLOGY TEXT RESULTS PATIENT: JOEY WILKINS LOCATION: [facility] 301-01 : [birth year] UNIT #: [id number] AGE: [address]: Robb Gilman MD SEX: F ORDER DR: [id number] [facility] [address] [facility]. [place], [place] [address] [id number] I MR#: [id number] Acc #: [id number] NAME: JOEY WILKINS : 1960 SEX: F STUDY DATE/TIME: 06/04/2017 21:06 UNIT: [address] ROOM: [facility] STUDY DESCRIPTION: CR Chest Single View Portable Attending Physician: Robb Gilman M.D. Ordering Physician: Didier Ronodn D.O. Primary Care Physician: Juan F Perry M.D. MEDICAL IMAGING REPORT This report is preliminary unless electronic signature is present EXAM Frontal chest 06/04/2017 INDICATION Altered mental status, short of air. Symptoms began today. TECHNIQUE Frontal chest compared with 08/10/2015. FINDINGS Cardiac silhouette is within normal limits. Lung volumes are low and there is bronchovascular crowding favored over vascular congestion. There is new atelectasis or less likely infiltrate in the right lung base and generalized atelectasis in the mid and lower lung zones bilaterally. No pneumothorax or effusion. IMPRESSION 1. Low lung volumes and new atelectasis or less likely faint infiltrate in the right lung base. No pneumothorax or effusion. 2. Bronchovascular crowding bilaterally. Dictated by... Derik Song M.D. THIS IS AN ELECTRONICALLY VERIFIED REPORT Derik Song M.D. at 06/05/2017 2:22 PM ROMAN/kiera TD: 06/05/2017 11:08 JOB #: [id number] MEDICAL IMAGING REPORT Page 1 of 1 COPY
--- NOTE | ~2017-06-04 | HP ---
Unit #: [id number] #: [id number] Patient: JOEY WILKINS [id number] [address] [place], [place] [address] [id number] I MR#: [id number] NAME: JOEY WILKINS ROOM: 94602 Age: 57 Sex: F Admission Date: 06/04/2017 : 1960 Attending Physician: Angie Pal M.D. Primary Care Physician: Juan F Perry M.D. HISTORY AND PHYSICAL CHIEF COMPLAINT Polypharmacy overdose. HISTORY This 57-year-old female with anxiety and depression, COPD, hypertension, chronic pain, is admitted following an overdose. Family and friends are no longer present. The patient herself is obtunded. I'm told she was brought in to the ER with increasing lethargy after an overdose. The son told the ER physician that the patient took an unknown amount of Lortab, Xanax, and Neurontin. Time of ingestion is unknown. She was brought to this emergency department lethargic, around 8:00 p.m. but arousable. Has become increasingly obtunded. Workup is very unremarkable except for an early UTI. Urine tox screen is positive for benzos and opiates, acetaminophen salicylate and alcohol levels are all negligible. In the ER the patient was bolused with IV fluids, given Levaquin and Narcan. Continues to be extremely obtunded. PAST MEDICAL HISTORY 1. Anxiety and depression. 2. Essential hypertension. 3. Urge incontinence. 4. COPD. 5. Chronic pain on [place]. 6. MRSA facial abscess requiring I and D in November. 7. Hyperlipidemia. 8. DJD. 9. Left knee surgery x8, following failed left total knee arthroplasty. ALLERGIES Keflex (causes her throat to close). HOME MEDICATIONS [place] 5/325 b.i.d.; Xanax 2 mg t.i.d.; possible trazodone, Prilosec 20 mg daily; ibuprofen 800 mg t.i.d.; estradiol 0.5 mg daily; Cymbalta 30 mg daily; Seroquel 100 mg q. p.m.; also this was last filled 04/28/2017; losartan 100 mg daily; Norvasc 10 mg daily; Ditropan ER 15 mg daily. FAMILY HISTORY Unobtainable. SOCIAL HISTORY The patient had a history of tobacco use, I believe one pack per day. I am unsure whether she uses alcohol or illicit drugs. Unit #: [id number] #: [id number] Patient: JOEY WILKINS REVIEW OF SYSTEMS Impossible to obtain as patient is obtunded. PHYSICAL EXAMINATION GENERAL: Obtunded 57-year-old female currently in no acute distress. VITAL SIGNS: Temperature 97.4, pulse 98, respirations 10, blood pressure 114/64, O2 saturation 93% on room air. HEENT: Eyes - PERRLA, somewhat constricted, pharynx is dry mucosal membranes. NECK: Supple without adenopathy or thyromegaly. CHEST: Clear. CARDIAC: Normal S1 and S2 without definite murmur. ABDOMEN: Bowel sounds are present. No hepatosplenomegaly, tenderness or masses. EXTREMITIES: Without clubbing, cyanosis or edema. Pedal pulses are present. NEUROLOGIC: Patient is obtunded. With excessive noxious stimuli she arouses minimally. I am having difficulty obtaining a gag on this patient. DIAGNOSTIC STUDIES LABORATORY STUDIES: Hematocrit is 37.7, normal white count, platelet count and coags. SMA 12 is normal. Ammonia normal. Negative acetaminophen salicylate and alcohol level. Urine tox screen positive for benzos and opiates. Urinalysis positive leukocyte esterase, nitrates with 5-10 white cells, 4+ bacteria. IMAGING STUDIES: Chest x-ray - atelectasis in the right lower base. CARDIOLOGY STUDIES: EKG - normal sinus rhythm rate 80, left axis deviation. Q wave noted in V1 and V2 with poor R wave progression as well. Of note, there do appear to be old Q waves inferiorly as well. ASSESSMENT 1. Polypharmacy overdose, patient is obtunded. 2. UTI. 3. Anxiety and depression. 4. COPD. 5. Chronic pain on [place]. 6. GERD. 7. Essential hypertension. PLANS 1. Obtain ABG. Patient may need intubation for airway protection. 2. Continue Levaquin for now for UTI. 3. 72 hour hold. 4. IV fluids and supportive treatment. 5. DVT and gastritis prophylaxis. 6. I will recheck labs in the morning and check a set of a cardiac enzymes. 7. Critical care time spent in evaluating this patient was 30 minutes. Dictated by Angie Pal M.D. AML/ts Unit #: [id number] #: [id number] Patient: JOEY WILKINS TD: 06/05/2017 05:02 JOB #: [id number] HISTORY AND PHYSICAL Page 1 of 1 X Angie Pal MD X HISTORY AND PHYSICAL
--- NOTE | ~2017-06-04 | CT71 ---
[facility] A Service of [facility] RADIOLOGY TEXT RESULTS PATIENT: JOEY WILKINS LOCATION: [facility] : 62 UNIT #: [id number] AGE: [address]: Robb Gilman MD SEX: F ORDER DR: [id number] [place] [id number] [facility]. [place], [place] [address] [id number] I MR#: [id number] #: [id number] NAME: JOEY WILKINS : 1960 SEX: F STUDY DATE/TIME: 06/04/2017 21:22 UNIT: [address] ROOM: [facility] STUDY DESCRIPTION: CT Head Wo Contrast Attending Physician: Robb Gilman M.D. Ordering Physician: Didier Rondon D.O. Primary Care Physician: Juan F Perry M.D. MEDICAL IMAGING REPORT This report is preliminary unless electronic signature is present EXAM CT head, noncontrast, 06/04/2017. HISTORY 57-year-old female in the ED with reported drug overdose today. Lethargy, mental status changes, slurred speech. TECHNIQUE CT examination of the head was performed without IV contrast. This CT exam was performed with one or more of the following radiation dose reduction techniques: automatic exposure control, adjustment of mA and/or kV according to patient size, and iterative reconstruction. COMPARISON CT head, 11/08/2015. FINDINGS The no acute intracranial abnormality is demonstrated. Mild generalized cerebral cortical atrophy is noted, unchanged. No evidence of intracranial hemorrhage, mass, mass effect, cerebral edema, hydrocephalus, or additional abnormality. Note is made of mucosal thickening within the visualized frontal and ethmoid sinuses. IMPRESSION 1. No acute intracranial abnormality. 2. Stable mild diffuse chronic changes as noted. 3. No change since 11/08/2015. Dictated by... Peter Valle M.D. [facility] A Service of [facility] RADIOLOGY TEXT RESULTS PATIENT: JOEY WILKINS LOCATION: [facility] : 62 UNIT #: [id number] AGE: [address]: Robb Gilman MD SEX: F ORDER DR: THIS IS AN ELECTRONICALLY VERIFIED REPORT Peter Valle M.D. at 06/05/2017 10:00 PM LORENZO/hipolito TD: 06/05/2017 11:22 JOB #: [id number] MEDICAL IMAGING REPORT Page 1 of 1 COPY
[2017-06-04 20:32] LABS: URINE SOURCE CLEAN CATCH
[2017-06-04 20:38] LABS: URINE APPEARANCE CLEAR; URINE BILIRUBIN NEG (NEG); URINE BLOOD NEG (NEG); URINE COLOR YELLOW; URINE GLUCOSE NEG (NEG); URINE KETONE TRACE (NEG); URINE LEUKOCYTE ESTERASE 2+ (NEG); URINE NITRATE POS (NEG); URINE PH 6.5 (5-8); URINE PROTEIN NEG (NEG); URINE SPECIFIC GRAVITY 1.008 (1.003-1.035); URINE UROBILINOGEN 0.2 MG/DL (NEG)
[2017-06-04 20:39] LABS: BASOPHIL% 0.6 % (0-2.5); EOSINOPHIL# 0.1 X10e3 (0-0.7); EOSINOPHIL% 1.1 % (0.0-7.0); HEMATOCRIT 37.7 % (35.0-45.0); HEMOGLOBIN 12.8 gm/dL (12.0-16.0); LYMPHOCYTE# 1.1 X10e3 (1.0-3.5); LYMPHOCYTE% 18.6 % (17.0-45.0); MEAN CORPUSCULAR HEMOGLOBIN 32.2 PG (28-34); MEAN CORPUSCULAR HGB CONC 33.9 g/dL (30-36); MEAN PLATELET VOLUME 8.6 FL (6.5-11.5); MONOCYTE# 0.3 X10e3 (0-1.0); MONOCYTE% 5.1 % (3.0-12.0); NEUTROPHIL# 4.5 X10e3 (1.5-7.1); NEUTROPHIL% 74.6 % (40-75); PLATELET COUNT 264 X10e3 (140-420); RED BLOOD COUNT 3.97 X10e (3.90-5.30)
[2017-06-04 20:41] LABS: CULTURE INDICATED? YES; URBCS1 AUWI 0-2 /[HPF] (0-2); URINE BACTERIA AUWI 4+ (NEGATIVE); URINE SQUAMOUS EPITHELIAL CELL OCC /[HPF]
[2017-06-04 20:43] LABS: DIFF IND NO
[2017-06-04 20:47] LABS: POC - TROPONIN <0.05 ng/mL (<=0.05)
[2017-06-04 20:51] LABS: PARTIAL THROMBOPLASTIN TIME 28.1 SECONDS (23.5-31.3); PROTHROMBIN TIME (PATIENT) 10.6 SECONDS (10.0-11.7)
[2017-06-04 21:00] LABS: ALBUMIN SERUM 3.7 g/dL (3.5-5.0); ALKALINE PHOSPHATASE 62 U/L (32-92); ALT (SGPT) 33 U/L (10-40); AST (SGOT) 38 U/L (10-42); BILIRUBIN, DIRECT 0.1 mg/dL (0.0-0.2); BILIRUBIN,INDIRECT 0.7 mg/dL (0.0-0.9); BILIRUBIN,TOTAL 0.8 mg/dL (0.2-2.0); BLOOD UREA NITROGEN 12 mg/dL (9-23); BUN/CREATININE RATIO 17.14; CALCIUM SERUM 8.9 mg/dL (8.4-10.2); CARBON DIOXIDE 27 mmol/L (22-31); CHLORIDE 106 mmol/L (100-111); CREATININE SERUM 0.7 mg/dL (0.6-1.4); GLOM FILT RATE Estimated 96.9 mL/min (>60); GLUCOSE FASTING 103 mg/dL (70-110); POTASSIUM 3.6 mmol/L (3.5-5.1); PROTEIN TOTAL SERUM 6.8 g/dL (6.0-8.3); SALICYLATE <4.0 mg/dL; SODIUM 141 mmol/L (135-145)
[2017-06-04 21:01] LABS: ACETAMINOPHEN <10 ug/mL; ALCOHOL BLOOD <5 mg/dL (0)
[2017-06-04 21:13] LABS: AMPHETAMINE NEG (NEG); BARBITURATES NEG (NEG); BENZODIAZEPINES POS (NEG); COCAINE NEG (NEG); MARIJUANA NEG (NEG); OPIATES POS (NEG); TRICYCLIC ANTIDEPRESSANTS NEG (NEG); U METHADONE NEG (NEG)
[2017-06-05 00:36] LABS: ARTERIAL BLD GAS O2 SATURATION 97.1 % (90.0-100.0); ARTERIAL BLOOD GAS CARBOXY HB 1.1 %sat (0.0-9.0); ARTERIAL BLOOD GAS HCO3 28.5 mmol/L; ARTERIAL BLOOD GAS MET HB 0.8 %sat (0.0-2.0); ARTERIAL BLOOD GAS pH 7.409 (7.350-7.450)
[2017-06-05 00:37] LABS: ARTERIAL BLOOD GAS ALLEN TEST NORMAL; ARTERIAL BLOOD GAS ART SITE LEFT RADIAL; ARTERIAL BLOOD GAS DELIVERY NASAL CANNULA; ARTERIAL DRAW? YES
[2017-06-05] MEDS ORDERED: CYMBALTA30 M1 PO (00:49)
[2017-06-05] MEDS ORDERED: IBUPROFEN800 MG PO (00:49)
[2017-06-05] MEDS ORDERED: DITROPAN XL15 MG PO (00:50)
[2017-06-05] MEDS ORDERED: ESTRADIOL0.5 MG PO (00:50)
[2017-06-05] MEDS ORDERED: COZAAR100 MG PO (00:50)
[2017-06-05] MEDS ORDERED: TRAZODONE HCL100 MG PO (00:51)
[2017-06-05] MEDS ORDERED: XANAX2 MG PO (00:52)
[2017-06-05] MEDS ORDERED: AMLODIPINE BESY10 MG PO (00:52)
[2017-06-05] MEDS ORDERED: OMEPRAZOLE20 M1 PO (00:53)
[2017-06-05] MEDS ORDERED: QUETIAPINE FUM100 MG PO (00:54)
[2017-06-05 07:28] LABS: BASOPHIL# 0.1 X10e3 (0-0.3); BASOPHIL% 0.7 % (0-2.5); EOSINOPHIL# 0.2 X10e3 (0-0.7); EOSINOPHIL% 2.1 % (0.0-7.0); HEMATOCRIT 37.4 % (35.0-45.0); HEMOGLOBIN 12.3 gm/dL (12.0-16.0); LYMPHOCYTE# 1.7 X10e3 (1.0-3.5); LYMPHOCYTE% 22.4 % (17.0-45.0); MEAN CELL VOLUME 95.8 FL (83-96); MEAN CORPUSCULAR HEMOGLOBIN 31.6 PG (28-34); MEAN CORPUSCULAR HGB CONC 32.9 g/dL (30-36); MEAN PLATELET VOLUME 8.4 FL (6.5-11.5); MONOCYTE# 0.5 X10e3 (0-1.0); MONOCYTE% 6.3 % (3.0-12.0); NEUTROPHIL# 5.1 X10e3 (1.5-7.1); NEUTROPHIL% 68.5 % (40-75); PLATELET COUNT 252 X10e3 (140-420); RED BLOOD COUNT 3.91 X10e (3.90-5.30); RED CELL DISTRIBUTION WIDTH 14.5 % (11.0-15.5); WHITE BLOOD COUNT 7.4 X10e3 (4.0-10.5)
[2017-06-05 07:29] LABS: DIFF IND NO
[2017-06-05 08:03] LABS: ALBUMIN SERUM 3.5 g/dL (3.5-5.0); BILIRUBIN,TOTAL 0.7 mg/dL (0.2-2.0); BUN/CREATININE RATIO 11.42; CREATININE SERUM 0.7 mg/dL (0.6-1.4); GLOM FILT RATE Estimated 96.9 mL/min (>60); POTASSIUM 4.2 mmol/L (3.5-5.1); PROTEIN TOTAL SERUM 6.5 g/dL (6.0-8.3)
[2017-06-05 09:40] LABS: %MB 2.5 % (0.0-4.0)
== END 2017-06-05 20:54 | DRG 918 ==
LOC: CED 19:45 → CEDOF 23:10 → CED 23:19 → CEDOF 06-05 05:48 → C3A PCU 06-05 05:48
PROVIDERS: Emergency Medicine; Internal Medicine
DX: T39.1X2A Poisoning by 4-Aminophenol derivatives, intentional self-harm, initial encounter (principal); F33.2 Major depressive disorder, recurrent severe without psychotic features; F11.20 Opioid dependence, uncomplicated; N39.0 Urinary tract infection, site not specified; T42.6X2A Poisoning by other antiepileptic and sedative-hypnotic drugs, intentional self-harm, initial encounter; T42.4X2A Poisoning by benzodiazepines, intentional self-harm, initial encounter; F41.9 Anxiety disorder, unspecified; F32.9 Major depressive disorder, single episode, unspecified; J44.9 Chronic obstructive pulmonary disease, unspecified; E78.5 Hyperlipidemia, unspecified; K21.9 Gastro-esophageal reflux disease without esophagitis; Z88.1 Allergy status to other antibiotic agents
CPT/HCPCS: 36415; 36600; 51701; 70450; 71010; 80048; 80053; 80076; 80307; 81003; 82140; 82550; 82553; 82803; 82947; 84484; 85025; 85610; 85730; 87086; 87088; 87186; 93005; 94640; 96374; 99285; G0480; J1956; J2310

== ENCOUNTER 2017-06-05 18:35 | Inpatient (IN) | payer MEDICARE, OTHER ==
[~2017-06-05] VITALS: Ht 167.6 cm; Wt 72.6 kg
--- NOTE | ~2017-06-05 | A ---
[facility] Nutrition Therapy DATE: 06/06/17 Patient: JOEY WILKINS Physician: FRANCIS Address: [address] [place] [address] Room/Bed: [address], Zip: [place] [address] Admit Date: 06/05/17 Date of : 62 Height: 5 6 Weight: [phone] NUTRITIONAL ASSESSMENT: REASON: UNINTENTIONAL WEIGHT LOS, CHEWING/SWALLOWING DIFFICULTIES PATIENT ADMITTED FOR SUSPECTED OVERDOSE ON ETOH AND HOME MEDICATIONS PMH: COPD, HTN, CHRONIC PAIN, HLD Anthropometrics: HT: 66", WT: 160#, BMI: 25.8 Labs: 06/06/17- BUN: 6, ALB: 3.1 Meds: SEROQUEL, XANAX, CYMBALTA, PROTONIX, DESYREL Assessment: PATIENT IS A 57 Y/O FEMALE ADMITTED FOR A SUSPECTED OVERDOSE ON ETOH AND HOME MEDICATIONS. PATIENT IS CURRENTLY ON DISABILITY, RENTS A ROOM FROM A FRIEND, SMOKES 1/2 PPD, AND HAS WEEKLY ETOH USE. PATIENT DENIES ANY SUBSTANCE ABUSE. UPON ADMIT PATIENT STATED A GOOD APPETITE WITH NO RECENT WEIGHT CHANGES, AND SHE HAS BEEN SLEEPING AN AVG OF 4 HOURS/NIGHT. WEIGHT HX PER [employer] SHOWS A 10# WEIGHT LOSS OVER LAST 7 MONTHS. CURRENT PO INTAKES ARE NOT AVAILABLE D/T PATIENT RECENTLY ADMITTED TO FACILITY. CURRENT PSYCH MEDS MAY CAUSE WEIGHT AND APPETITE FLUCTUATIONS. PATIENT DOES NOT HAVE ANY C/O CHEWING OR SWALLOWING DIFFICULTIES ATT AND SHE DID NOT HAVE ANY DIFFICULTIES AT [facility] (06/04/17). PATIENT'S BMI IS ABOVE A HEALTHY RANGE OF 19-25 AND SHE IS ON A REGULAR DIET. THERE ARE NO SKIN OR GI ISSUES NOTED ATT. PATIENT IS NOTED TO CURRENTLY HAVE A UTI. Dx: NO NUTRITION DX Intervention: REGULAR DIET, MEDS PER MD, PSYCH Monitoring, Evaluation and Goals: 1. ADEQUATE PO INTAKES >50% OF MEALS 2. PREVENT, CORRECT MICRO/MACRO NUTRIENT DEFICIENCIES MONITOR: WEIGHTS, LABS, PO/FLUID INTAKES Recommendations: 1. CONTINUE REGULAR DIET TOLERATED 2. ENCOURAGE ADEQUATE PO AND FLUID INTAKES 3. IF PATIENT HAS ANY C/O CHEWING OR SWALLOWING DIFFICULTIES PLEASE CONSULT [employer]ER [employer] FOR FURTHER EVALUATION [facility] Nutrition Therapy DATE: 06/06/17 Patient: JOEY WILKINS Physician: FRANCIS Address: [address] [place] [address] Room/Bed: P186-2 [facility], [facility], Zip: [place] [address] Admit Date: 06/05/17 Date of : [birth year] Height: 5 6 Weight: [address] TO F/U PER PROTOCOL AND PRN R/T PATIENT NOT AT NUTRITIONAL RISK ATT Respectfully, DARIEN TREJO RD, LD Food and Nutritional Services [facility] cc: client file
--- NOTE | ~2017-06-05 | HP ---
Unit #: [id number] #: [id number] Patient: SHARA WILKINS [id number] [place] [address] [id number] I MR#: [id number] NAME: SHARA WILKINS ROOM: [facility] Age: 57 Sex: F Admission Date: 06/05/2017 : 1960 Attending Physician: Kumar Gomez M.D. Admitting Physician: Kumar Gomez M.D. Primary Care Physician: Juan F Perry M.D. HISTORY AND PHYSICAL HISTORY OF PRESENT ILLNESS Shara is a 57 year old admitted to [facility] with depression and verbalizing wanting to hurt herself. PAST MEDICAL HISTORY 1. Coronary artery disease. a. History of ID. 2. High blood pressure. 3. COPD. PAST SURGICAL HISTORY 1. Left leg. 2. Hysterectomy. ALLERGIES Keflex (anaphylaxis). SOCIAL HISTORY Smokes less than one pack per day. Drinks alcohol on occasion. Denies illicit drug use. FAMILY HISTORY Medically noncontributory. REVIEW OF SYSTEMS CONSTITUTIONAL: No fever or chills. HEENT: Denies any sore throat, ear pain or runny nose. CARDIOVASCULAR: Denies chest pain, irregular heart rhythm or palpitations. CHEST: Denies shortness of breath or cough. No hemoptysis. GASTROINTESTINAL: Denies nausea, vomiting, diarrhea or chronic constipation. ENDOCRINE: Denies history of increased thirst or urination. No recent significant weight loss or gain. GENITOURINARY: Denies dysuria, frequency, or hematuria. SKIN: Denies any rashes. HEMATOLOGIC: Denies history of increased bleeding or bruising. MUSCULOSKELETAL: Denies any hot, swollen joints. No generalized muscle pain. NEUROLOGIC: Denies problems with vision or speech. No frequent, severe headaches. No numbness, tingling or weakness in any extremities. Denies loss of bladder or bowel control. Unit #: [id number] #: [id number] Patient: SHARA WILKINS CURRENT MEDICATIONS 1. Detox protocol 2. Seroquel 100 mg q.h.s. 3. Xanax 1 mg t.i.d. p.r.n. 4. Cymbalta 90 mg q day 5. Norvasc 10 mg q day 6. Cozaar 100 mg q day 7. Estrace 0.5 mg q day 8. Ditropan XL 15 mg q day 9. Protonix 40 mg q day 10. Nicotine patch 7 mg q day 11. Vicodin 5/325 1 tab p.o. t.i.d. p.r.n. 12. Ibuprofen 800 mg t.i.d. p.r.n. PHYSICAL EXAMINATION GENERAL: Alert, well-nourished, in no apparent distress. VITAL SIGNS: Blood pressure 148/76, heart rate 80, respirations 16, temperature 98.6. WEIGHT: 160. HEIGHT: 5 foot 6 inches. SKIN: Warm and dry without rash or lesion. HEENT: Normocephalic. TMs not viewed. Oral and nasal passages clear. Conjunctivae clear. Pupils equal, round and reactive to light and accommodation. Extraocular movements intact. NECK: Supple without lymphadenopathy or thyromegaly. HEART: Regular rate and rhythm without murmur. LUNGS: Clear. ABDOMEN: Soft, nontender. : Not done. EXTREMITIES: No evidence of cyanosis, clubbing or edema. Moves all extremities without focal deficit. NEUROLOGICAL: Grossly within normal limits. Cranial Nerves: II: Visual del real are intact. III, IV AND : Extraocular movements are intact. Pupils are equal, round and reactive to light. V: Facial sensation is grossly normal. VII: Facial movements and expression are normal. VIII: Auditory acuity grossly intact. IX, X: Uvula is midline. Phonation is normal. XI: Patient shrugs shoulders and turns head normally. XII: Tongue protrudes in the midline. Sensory and Motor Function: Sensory and motor sensation is grossly normal. Motor: moves all extremities well. Coordination: Gait is normal. Deep Tendon Reflexes: Intact. IMPRESSION Psychiatric admission. RECOMMENDATIONS PSYCHIATRIC: Per psychiatrist. MEDICAL: I see no contraindications to participating in facility's activities. MEDICAL PROGNOSIS Good. MEDICAL CONDITION Stable. Unit #: [id number] #: [id number] Patient: SHARA WILKINS Dictated by... Christine Sierra P.A.-C. for Alfie Walton/ravin TD: 06/06/2017 21:07 JOB #: [id number] HISTORY AND PHYSICAL Page 1 of 1 X Christine Sierra HISTORY AND PHYSICAL
--- NOTE | ~2017-06-05 | DS ---
Unit #: [id number] #: [id number] Patient: JOEY WILKINS [id number] [place] [address] [id number] MR#: [id number] NAME: JOEY WILKINS ROOM: [facility] Age: 57 Sex: F Admission Date: 06/05/2017 : 1960 Discharge Date: 06/07/2017 Attending Physician: Kumar Gomez M.D. Primary Care Physician: Juan F Perry M.D. DISCHARGE SUMMARY REASON FOR ADMISSION Depression. DIAGNOSTIC STUDIES LABORATORY DATA: Remarkable for urine drugs screen, positive for opiate and benzodiazepine. HOSPITAL COURSE The patient was admitted to inpatient unit on June 05 and discharged on 06/07/2017. The patient was treated with group therapy, individual therapy, and medication management. The patient was responsive to treatment. The patient was subsequently discharged with a plan to follow up in outpatient program. DISCHARGE MEDICATIONS 1. Neurontin 800 mg 4 times a day for neuropathy. 2. Lortab. 3. Protonix. 4. Seroquel 100 mg at bedtime for mood stabilization. 5. Ditropan XL 50 mg daily for bladder. 6. Esterase 0.5 mg daily. 7. Supplement Cozaar 100 mg daily for hypertension. 8. Norvasc. 9. Cymbalta 90 mg daily for depression. The patient was not given any prescription. The patient had all medications at home. DISCHARGE DIAGNOSES PSYCHIATRIC: Major depressive disorder, recurrent, severe, F33.2 Alcohol use disorder, severe, F10.20 SECONDARY: Deferred. MEDICAL: Essential hypertension. Incontinence. Chronic obstructive pulmonary disease. Chronic pain. Methicillin-resistant Staphylococcus aureus facial abscess. Hyperlipidemia. Degenerative joint disease. Left knee surgery x8. STRESSORS: Psychosocial stressor. FOLLOWUP CARE The patient to follow up in outpatient clinic as per delinquency prevention social worker. Unit #: [id number] #: [id number] Patient: JOEY WILKINS CONDITION ON DISCHARGE The patient pleasant, cooperative. Denied any psychotic symptom or any suicidal ideation. PROGNOSIS Guarded. DIET AND ACTIVITY As tolerated. Dictated by... Kumar Gomez M.D. SZC/bzg TD: 06/08/2017 09:01 JOB #: [id number] DISCHARGE SUMMARY Page 1 of 1 X Kumar Gomez MD DISCHARGE SUMMARY
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
[~2017-06-05 18:35] MED LIST changes: +COZAAR100 MG PO; +CYMBALTA30 M1 PO; +DITROPAN XL15 MG PO; +ESTRADIOL0.5 MG PO; +OMEPRAZOLE20 M1 PO; +QUETIAPINE FUM100 MG PO; +TRAZODONE HCL100 MG PO
[2017-06-06 09:31] LABS: BASOPHIL% 0.9 % (0-2.5); DIFF IND NO; EOSINOPHIL# 0.3 X10e3 (0-0.7); EOSINOPHIL% 4.6 % (0.0-7.0); HEMATOCRIT 35.3 % (35.0-45.0); HEMOGLOBIN 11.8 gm/dL (12.0-16.0); LYMPHOCYTE% 34.4 % (17.0-45.0); MEAN CELL VOLUME 96.1 FL (83-96); MEAN CORPUSCULAR HGB CONC 33.3 g/dL (30-36); MEAN PLATELET VOLUME 9.3 FL (6.5-11.5); MONOCYTE# 0.5 X10e3 (0-1.0); MONOCYTE% 8.1 % (3.0-12.0); PLATELET COUNT 226 X10e3 (140-420); RED BLOOD COUNT 3.67 X10e (3.90-5.30); RED CELL DISTRIBUTION WIDTH 14.1 % (11.0-15.5); WHITE BLOOD COUNT 5.7 X10e3 (4.0-10.5)
[2017-06-06 09:39] LABS: URINE APPEARANCE CLEAR; URINE BILIRUBIN NEG (NEG); URINE BLOOD NEG (NEG); URINE COLOR YELLOW; URINE GLUCOSE NEG (NEG); URINE KETONE NEG (NEG); URINE LEUKOCYTE ESTERASE NEG (NEG); URINE NITRATE NEG (NEG); URINE PROTEIN NEG (NEG)
[2017-06-06 09:50] LABS: ALBUMIN SERUM 3.1 g/dL (3.5-5.0); BILIRUBIN,TOTAL 0.3 mg/dL (0.2-2.0); BUN/CREATININE RATIO 8.57; CREATININE SERUM 0.7 mg/dL (0.6-1.4); GLOM FILT RATE Estimated 96.9 mL/min (>60); POTASSIUM 3.8 mmol/L (3.5-5.1); PROTEIN TOTAL SERUM 5.8 g/dL (6.0-8.3)
[2017-06-06 10:49] LABS: AMPHETAMINE NEG (NEG); BARBITURATES NEG (NEG); BENZODIAZEPINES POS (NEG); COCAINE NEG (NEG); MARIJUANA NEG (NEG); OPIATES POS (NEG); TRICYCLIC ANTIDEPRESSANTS NEG (NEG); U METHADONE NEG (NEG)
== END 2017-06-07 12:20 | disposition home or self-care (01) | DRG 885 ==
LOC: P1E 21:51
PROVIDERS: Psychiatry & Neurology Psychiatry
DX: F33.2 Major depressive disorder, recurrent severe without psychotic features (principal); I10 Essential (primary) hypertension; L02.01 Cutaneous abscess of face; F10.20 Alcohol dependence, uncomplicated; N39.41 Urge incontinence; J44.9 Chronic obstructive pulmonary disease, unspecified; G89.29 Other chronic pain; B95.62 Methicillin resistant Staphylococcus aureus infection as the cause of diseases classified elsewhere; E78.5 Hyperlipidemia, unspecified; M19.90 Unspecified osteoarthritis, unspecified site
CPT/HCPCS: 80053; 80307; 81003; 85025